=== PATIENT | female | born 1995 | race Caucasian/White ===

== ENCOUNTER 2016-12-12 17:03 | Emergency (ER) | payer OTHER ==
[2016-12-12] MEDS ORDERED: NS 0.9% 1000 ML* 2,000 ML IV ONE (18:58)
[2016-12-12] MEDS ORDERED: Ondansetron INJ* 2 MG/ML VIAL IV ONE (18:59)
--- NOTE | 2016-12-12 19:53 | ED ---
GI/ HPI - HPI Summary HPI Summary: 21F presents with n/v/d for 2 days. was sent by [facility] because thought dehydrated and she was in contact with cats that were not dewormed. They gave her zofran before she came so she denies any nausea at the time. She denies any abdominal pain but she does admit to a headache that is band like. She denies any blood in her stool. She denies any dysuria, hematuria, frequency, and urgency. She denies any vaginal discharge. She denies eating anything different or any sick contacts. She denies any fever. She denies any recent antibiotic usage. - History of Current Complaint Chief Complaint: EDNauseaVomitDiarrh Time Seen by Provider: 12/12/16 18:57 Stated Complaint: V/N/D/BODY ACHES Pain Intensity: 7 - Allergy/Home Medications Allergies/Adverse Reactions: Allergies Allergy/AdvReac Type Severity Reaction Status Date / Time Amoxicillin Allergy Hives Verified 12/12/16 19:49 PMH/Surg Hx/FS Hx/Imm Hx Cardiovascular History: Denies: Hx Hypertension Respiratory History: Denies: Hx Asthma Infectious Disease History: No Infectious Disease History: Denies: Traveled Outside the [place] in Last 30 Days - Family History Known Family History: Positive: Diabetes - Social History Alcohol Use: Occasionally Substance Use Type: Reports: None Smoking Status (MU): Never Smoked Tobacco Review of Systems Negative: Fever Negative: Chest Pain Negative: Shortness Of Breath Positive: Vomiting, Diarrhea, Nausea. Negative: Abdominal Pain Negative: dysuria, frequency All Other Systems Reviewed And Are Negative: Yes Physical Exam Triage Information Reviewed: Yes Vital Signs On Initial Exam: Initial Vitals Temp Pulse Resp BP Pulse Ox 97.2 F 93 18 108/64 99 12/12/16 17:06 12/12/16 17:06 12/12/16 17:06 12/12/16 17:06 12/12/16 17:06 Vital Signs Reviewed: Yes Appearance: Positive: Well-Appearing Skin: Positive: Warm, Dry Head/Face: Positive: Normal Head/Face Inspection Eyes: Positive: Normal, Conjunctiva Clear ENT: Positive: Normal ENT inspection, Pharynx normal, TMs normal Respiratory/Lung Sounds: Positive: Clear to Auscultation, Breath Sounds Present Cardiovascular: Positive: Normal, RRR Abdomen Description: Positive: Nontender, Soft Bowel Sounds: Positive: Present Diagnostics - Vital Signs Vital Signs Temp Pulse Resp BP Pulse Ox 12/12/16 19:47 97.2 F 93 18 108/64 99 12/12/16 17:06 97.2 F 93 18 108/64 99 - Laboratory Result Diagrams: 12/12/16 19:55 12/12/16 19:55 Lab Statement: Any lab studies that have been ordered have been reviewed, and results considered in the medical decision making process. GIGU Course/Dx - Course Course Of Treatment: 21F presents with n/v/d for 2 days. has been in contact with cats that not dewormed. denies any fever. on exam abdomen nontender. labs wbc 12, u/a shows bacteria and leuko but denies any UTI symptoms. will treat with cipro though because will cover for bacterial gastroenteritis along with UTI. patient felt better with fluids. unable to give stool sample told to take to lab when can provide one. patient understands and agrees with plan - Diagnoses Differential Diagnoses - Female: Gastroenteritis (Viral), Gastroenteritis ( Bacterial), Urinary Tract Infection Provider Diagnoses: Nausea vomiting and diarrhea, UTI (urinary tract infection) Discharge - Discharge Plan Condition: Good Disposition: HOME Prescriptions: Ciprofloxacin TAB* [Cipro 500 MG TAB*] 500 mg PO BID #9 tab Patient Education Materials: Acute Nausea and Vomiting (ED) Referrals: [facility] [Primary Care Provider] - Additional Instructions: Take antibiotic twice a day for 5 days, first dose given in ED Can take Zofran every 6 hours as needed for nausea Drink small amounts of fluid as tolerated When able to eat follow BRAT diet: Bananas, rice, applesauce, toast Symptoms likely due to viral gastroenteritis Take ibuprofen or Tylenol for pain as needed every 6 hours Follow up with primary within 5 days Return to ED if develop fever that does not respond to Tylenol or ibuprofen, severe abdominal pain, or any new or worsening symptoms
[2016-12-12 20:11] LABS: Hematocrit 37 % (35-47); Hemoglobin 12.2 g/dl (12.0-16.0); Mean Corpuscular HGB Conc 33 g/dl (31-36); Mean Corpuscular Hemoglobin 29 pg (27-31); Mean Corpuscular Volume 88 fL (80-97); Mean Platelet Volume 9 um3 (7.4-10.4); Red Blood Count 4.17 10^6/ul (4.0-5.4); Red Cell Distribution Width 13 % (10.5-15); White Blood Count 12.6 10^3/ul (3.5-10.8)
[2016-12-12 20:27] LABS: Albumin 3.9 g/dL (3.2-5.2); Calcium 8.6 mg/dL (8.6-10.3); EGFR African American 129.4 (>60); EGFR Non-African American 100.6 (>60); Globulin 2.9 g/dL (2-4); Potassium 3.4 mmol/L (3.5-5.0); Total Bilirubin 0.4 mg/dL (0.2-1.0); Total Protein 6.8 g/dL (6.4-8.9)
[2016-12-12 20:28] LABS: Urine Bacteria 3+ (Absent); Urine Bilirubin Negative (Negative); Urine Glucose Negative (Negative); Urine Nitrite Negative (Negative)
[2016-12-12] MEDS ORDERED: Ondansetron ODT TAB* 4 MG PO ONE (20:50)
[2016-12-12] MEDS ORDERED: Ciprofloxacin TAB* 500 MG PO ONE (20:50)
[2016-12-12 21:51] VITALS: BP 114/72
== END 2016-12-12 21:49 | disposition home or self-care (01) ==
LOC: ED 17:03
DX: N39.0 Urinary tract infection, site not specified (principal); R11.2 Nausea with vomiting, unspecified; R19.7 Diarrhea, unspecified
CPT/HCPCS: 36415; 80053; 81003; 81015; 83605; 85025; 86141; 87086; 96374; 99282; A9270-GY